=== PATIENT | female | born 2000 | race Two or more races ===

== ENCOUNTER 2019-11-16 22:26 | Emergency (ER) | payer OTHER ==
[~2019-11-16] VITALS: Ht 152.4 cm; Wt 76.7 kg
[2019-11-17] MEDS ORDERED: SODIUM CHLORIDE 0.9% 1,000ML IVBOLUS ONE (01:00)
[2019-11-17] MEDS ORDERED: SODIUM CHLORIDE FLUSH 10ML SYR IVF ONE (01:00)
[2019-11-17] MEDS ORDERED: ONDANSETRON 2MG/ML, 2ML IVPush ONE (01:00)
[2019-11-17 01:28] LABS: BASOPHILS # (AUTO) 0.02 x10^3/uL (0-0.1); BASOPHILS % (AUTO) 0 % (0-1); EOSINOPHILS % (AUTO) 0 % (1-7); LYMPHOCYTES # (AUTO) 0.89 x10^3/uL (1-3.4); LYMPHOCYTES % (AUTO) 19 % (22-44); MD NO; MEAN CORPUSCULAR HEMOGLOBIN 30.3 pg (27.0-34.8); MEAN CORPUSCULAR HGB CONC 33.4 g/dL (32.4-35.8); MEAN CORPUSCULAR VOLUME 90.8 fL (80-100); MEAN PLATELET VOLUME 9.2 fL (7.4-10.4); MONOCYTES # (AUTO) 0.41 x10^3/uL (0.2-0.8); MONOCYTES % (AUTO) 9 % (2-9); NEUTROPHILS # (AUTO) 3.49 x10^3/uL (1.8-6.8); NEUTROPHILS % (AUTO) 73 % (42-75); PLATELET COUNT 180 x10^3/uL (130-400); RED BLOOD COUNT 5.28 x10^6/uL (3.82-5.3); RED CELL DISTRIBUTION WIDTH 12.1 % (9.6-15.2)
[2019-11-17 01:30] LABS: ALANINE AMINOTRANSFERASE 136 U/L (12-78); ALBUMIN 4.2 g/dL (3.4-5.0); ANION GAP 8 mmol/L (5-15); CALCIUM 9.2 mg/dL (8.5-10.1); CHLORIDE 106 mmol/L (98-107)
[2019-11-17 01:34] LABS: ALKALINE PHOSPHATASE 78 U/L (45-117); BILIRUBIN,TOTAL 0.4 mg/dL (0.2-1.0); TOTAL PROTEIN 8.9 g/dL (6.4-8.2)
[2019-11-17] MEDS ORDERED: ACETAMINOPHEN 500 MG TABLET ONE (02:53)
[2019-11-17] MEDS ORDERED: ONDANSETRON 2MG/ML, 2ML ONE (02:53)
[2019-11-17] MEDS ORDERED: KETOROLAC 30 MG/1 ML ONE (02:53)
--- NOTE | 2019-11-17 02:55 | NUR ---
PT AMB TO ROOM FROM LOBBY
[2019-11-17] MEDS ORDERED: ACETAMINOPHEN 500 MG TABLET PO ONE (03:00)
[2019-11-17] MEDS ORDERED: KETOROLAC 30 MG/1 ML IVPush ONE (03:00)
--- NOTE | 2019-11-17 03:26 | NUR ---
THIS IS A 19Y F THAT COMES IN TONIGHT FOR COUGH, CHILLS, HEADACHE X1WK. PT STS SHE HAS GOTTEN NO IMPROVEMENT THIS WEEK AND DAYQUIL AND NYQUIL DID NOT HELP. PT CONNECTED TO MONITORING VSS NADN, PIV STARTED PT MEDICATED PER MAR FLUIDS INFUSING WITHOUT DIFFICULTY AT THIS TIME.
[2019-11-17 04:07] VITALS: BP 100/63
--- NOTE | 2019-11-17 04:08 | NUR ---
Patient/Caregiver given discharge instructions and they have confirmed that they understand the instructions. Patient ambulatory with steady gait. PIV DC PRIOR TO PT LEAVING FACIITY
== END 2019-11-17 04:24 | disposition home or self-care (01) ==
LOC: ED 11-17 03:51
DX: U07.1 COVID-19 (principal); B34.9 Viral infection, unspecified; R11.2 Nausea with vomiting, unspecified
CPT/HCPCS: 36415; 71046; 80053; 83605; 83690; 84703; 85025; 87040; 87635; 93005; 96361; 96374; 96375; 99285; J1885; J2405; J7030